=== PATIENT | female | born 1990 | race Asian ===

== ENCOUNTER → 2021-01-03 10:57 | Outpatient (CLI) | payer BC, SELFPAY ==
--- NOTE | 2021-01-03 | IMM_PTH ---
PATIENT: JALYN MARKS LOC: [facility] U#:[id number] AGE/SX: 34/F ROOM: RE01/03/[address]: Dr. Tiffany Schulte MD : 1990 BED: DIS: SPEC #: [id number] RECD: 01/04/21 12:36 STATUS: MARITO REQ #: [id number] JADA: 01/03/21 00:[address]: Tiffany Schulte DEPT: IMMUNOHISTOCHEMISTRY RECD BY: Dora Schwartz ENTERED: 01/04/21 12:37 SP TYPE: IMMUNO OTHR DR: Dr. Mona Vazquez MD Tissues: Left breast, NOS Procedures: CALPONIN-1 (add) CK8 (add) E-CAD (add) HER2 ANTONIO (add) NH (add) P40 (add) ER (initial) PHYSICIAN & INSTITUTION [place] [id number] SPECIMEN INFORMATION: Tissue Source: Left breast microcalcifications Clinical Info: Left breast microcalcifications Specimen Number: [id number] #2 CPT code: 18428, 53149 x3, 22035 x3 METHODOLOGY: Deparaffinized sections of prefer/formalin-fixed tissue or PAP/DQ stained slides are incubated with monoclonal/polyclonal antibodies/oligonucleotide probes. Localization is made via biotin free immunoperoxidase method. Appropriate controls are performed and reacted as expected. Results on target cell population are indicated in the following table: RESULTS: ANTIBODY / CLONE RESULT Block 2 E-Cad (ECH-6) positive CK8 ([id number]) positive Calponin-1 (LX168T) negative P40 (BC28) positive MORPHOMETRIC ANALYSIS ER (clone 6F11) positive (67%, moderate to strong intensity) NH (clone 16/1E2) variably positive (0-16%, weak intensity) Her-2Neu (clone CB11) negative (1+) The prognostic test for HER2 is performed on formalin-fixed paraffin embedded tissue. A 3+ (positive) staining pattern is defined as intense, homogeneous, complete, circumferential membranous staining in >10% of contiguous tumor cells. A similar weak (2+) staining pattern is interpreted as equivocal. SHERRY follow-up testing is recommended for all equivocal cases. Positivity/negativity for ER/NH is reported if > or < 1% of the tumor cells are immuno- reactive, respectively. The ASCO/CAP criteria is used for scoring. Reference: Journal of Clinical Oncology, 2013; 31:9326-1391 & 2010; 16:0692-9692. Duration of fixation: 7.5 Hrs; Sample Adequate: Yes. These assays have not been validated on decalcified tissues. Results should be interpreted with caution given the likelihood of false negativity on decalcified specimens. These tests were developed and their performance characteristics determined by [facility]. They may not have been cleared or approved by the U.S. Food and Drug Administration. The FDA has determined that such clearance or approval is not necessary. The above immunohistochemical/dualISH markers are ordered and reviewed by the Pathologist. INTERPRETATION: Left breast microcalcifications, stereotactic core biopsy: Ductal carcinoma in situ, nuclear grade 2. SJ:geovani 01/05/2021
--- NOTE | 2021-01-03 12:20 | BRBX_PTH ---
PATIENT: JALYN MARKS LOC: [facility] U#:[id number] AGE/SX: 34/F ROOM: RE01/03/[address]: Dr. Tiffany Schulte MD : 1990 BED: DIS: SPEC #: [id number] RECD: 01/03/21 13:29 STATUS: MARITO REDavid #: [id number] JADA: 01/03/21 12:[address]: Tiffany Schulte DEPT: SURGICAL PATHOLOGY RECD BY: Kelly Olmedo ENTERED: 01/03/21 13:39 SP TYPE: BREAST BX OTHR DR: Dr. Mona Vazquez MD Tissues: Left breast, NOS Procedures: Surgery Specimen Level IV HEADER OPERATION: Left breast stereotactic needle core biopsy PRE-OP DIAGNOSIS: Microcalcifications TISSUE SUBMITTED: Left breast ISCHEMIC TIME: 2 minutes FIXATION TIME: 7.5 hours MICROSCOPIC DIAGNOSIS Left breast microcalcifications, stereotactic needle core biopsy: Ductal carcinoma in situ with the following characteristics: Architectural Pattern ? solid, cystic and cribriform Nuclear Grade ? 2/3 Necrosis ? not identified. Calcifications - present Additional findings ? extensive dense fibrosis. See comment. MARY:geovani 01/04/2021 COMMENT Immunohistochemistry ([id number]) supports the above diagnosis. ER/PA/Fii8lza studies are being performed on sections of tumor and the results from this study will be reported separately ([id number]). Case has been reviewed in consultation with Dr. Arnold who concurs with the above diagnosis. IDC:AM MICROSCOPIC DESCRIPTION Slides are reviewed. GROSS DESCRIPTION Received in fixative is one container labeled with the patient name and designated left breast. The specimen consists of multiple elongated fragments of irving-yellow fibroadipose tissue that in aggregate measure 5 x 3 x 0.3 cm. The entire specimen is submitted in two cassettes. / MARY:geovani 01/03/21 TC:0 CPT: 14530 ADDENDUM ADDENDUM ADDENDUM ADDENDUM ADDENDUM ADDENDUM ADDENDUM ADDENDUM ADDENDUM ADDENDUM 02/12/2021 10:15 ADDENDUM 02/12/2021 10:15 ADDENDUM 02/12/2021 10:15 ADDENDUM 02/12/2021 10:15 ADDENDUM 02/12/2021 10:15 This addendum is added to incorporate an outside pathology consultation report. The case was examined at [facility] (#[id number]) and the following diagnosis was rendered. Left breast microcalcifications, stereotactic needle core biopsy: Ductal carcinoma in situ, solid and cribriform types, of intermediate nuclear grade. Please see complete above mentioned consultation report in EMR
--- NOTE | 2021-01-03 16:53 | OP.PCM_ITS ---
Report of Operation Date of Procedure: 01/03/21 Pre-Operative Diagnosis: abnormal calcifications on left breast mammograms Post-Operative Diagnosis: same Surgery/Procedure Performed:: left stereotactic breast biopsy Description of Surgical Findings:: very dense stromal breast tissue Surgeon: Tiffany Schulte Type of Anesthesia: Local (1% xylocaine) Specimen's removed: left breast tissue Estimated Blood Loss (mL): minimal Description of Procedure: After informed consent was given, the patient was brought into the Breast Biopsy suite. Appropriate time out protocol was followed. The patient was placed in the prone position on the stereotactic biopsy table. The patient?s left breast was then placed in the opening at the head of the biopsy table. A private branch exchange repairer compression mammogram was then obtained in the CC view. The suspicious radiological lesion was thus identified. Stereo pictures of the lesion were then taken for XYZ coordinates. The Mammotome biopsy stylus was then positioned where it would be entering into the patient?s breast. The skin at this site was then cleansed with a surgical skin preparation. The skin and subcutaneous tissues at this site were then infiltrated with 1% xylocaine. A small skin incision was made with an 11 blade scalpel. The biopsy stylus was then positioned into the patient?s breast at the proper coordinates of depth. Using the Mammotome vacuum-assist device, several core samples of breast tissue were obtained. A specimen mammogram was the obtained. It revealed that the abnormal calcifications were within the specimen. I reviewed this personally and concluded that the tissue sampling was adequate. The patient had dense stromal breast tissue as the vacuum device did not obtain as much tissue as normally. A hemostatic marker clip was then placed into the biopsy cavity and a private branch exchange repairer film revealed that it was properly deployed. The patient was then placed in the supine position and pressure was applied to the breast until no active bleeding was noted. Steristrips were applied to reapproximate the skin. A unilateral mammogram in the CC and MLO view were then taken which revealed that the marker clip was in the same area as the previous suspicious lesion. The patient tolerated the procedure well and was discharged from the Breast Biopsy suite in good condition. Grafts/Implants Used: bowtie marker clip Complications none noted
== END ==
PROVIDERS: PCP Internal Medicine; Referring Provider Surgery; Visit Provider Surgery
DX: D05.12 Intraductal carcinoma in situ of left breast (principal); R92.1 Mammographic calcification found on diagnostic imaging of breast
CPT/HCPCS: 19081; 88305; 88341; 88342; J7050; A4648

== ENCOUNTER 2024-08-24 01:22 | Emergency (ER) | payer OTHER, SELFPAY ==
[2024-08-24 01:24] VITALS: BP 113/82; PULSE 81; RESP 16; TEMP 36.8; O2SAT 96; BMI 21.1
[2024-08-24 01:26] VITALS: O2SAT 100
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
[2024-08-24] MEDS: Ibuprofen 600 MG Tablet PO (01:58)
[2024-08-24] MEDS: cycloBENZAPRine HCl 10 MG Tablet PO (01:58)
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
[2024-08-24 02:19] VITALS: BP 121/79; PULSE 85; RESP 16; TEMP 36.7; O2SAT 95
== END 2024-08-24 02:47 | disposition home or self-care (01) ==
PROVIDERS: Emergency Provider Emergency Medicine; PCP Internal Medicine; Visit Provider Emergency Medicine
DX: S16.1XXA Strain of muscle, fascia and tendon at neck level, initial encounter (principal); S30.1XXA Contusion of abdominal wall, initial encounter; V43.52XA Car driver injured in collision with other type car in traffic accident, initial encounter; Y92.410 Unspecified street and highway as the place of occurrence of the external cause; Z79.899 Other long term (current) drug therapy
CPT/HCPCS: 72040; 99282

== ENCOUNTER 2024-09-11 13:02 | Emergency (ER) | payer OTHER, SELFPAY ==
[2024-09-11 13:02] VITALS: BP 119/82; PULSE 85; RESP 16; TEMP 35.7; O2SAT 100; BMI 21.2
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
[2024-09-11 14:07] VITALS: BP 119/82; PULSE 85; RESP 16; TEMP 36.5; O2SAT 99
== END 2024-09-11 14:27 | disposition home or self-care (01) ==
LOC: ED 14:12
PROVIDERS: Emergency Provider Emergency Medicine; PCP Internal Medicine; Visit Provider Emergency Medicine
DX: R20.2 Paresthesia of skin (principal); M79.641 Pain in right hand
CPT/HCPCS: 99282